=== PATIENT | male | born 1975 | race Caucasian/White ===

== ENCOUNTER 2018-05-06 23:06 | Inpatient (IN) | payer OTHER ==
--- NOTE | 2018-05-06 23:25 | Emergency Department Report ---
ED Chest Pain HPI - General Chief Complaint: Chest Pain Stated Complaint: CHEST PAIN Time Seen by Provider: 05/06/18 23:17 Source: patient, EMS Mode of arrival: Stretcher Limitations: Language Barrier - History of Present Illness Initial Comments: 42-year-old male with no previous medical history presents with complaint of chest pain since this morning. Onset of pain while at rest. Patient states pain is left-sided, radiates in the left arm, with associated shortness of breath. Patient denies diaphoresis, nausea or vomiting. Patient reports mild swelling to bilateral lower legs. Patient denies fever or cough. Patient reports ETOH use, however denies tobacco and drug use. MD Complaint: chest pain -: This morning Onset: during rest Pain Location: left chest Pain Radiation: LUE Severity: moderate Quality: tightness Consistency: constant Improves With: nothing Worsens With: nothing re: dyspnea. denies: nausea, vomting, diaphoresis Other Symptoms: leg swelling. denies: cough, fever - Related Data Home Medications Medication Instructions Recorded Confirmed Last Taken No Known Home Medications [No 05/07/18 05/07/18 Unknown Reported Home Medications] Allergies Allergy/AdvReac Type Severity Reaction Status Date / Time No Known Allergies Allergy Unverified 05/06/18 23:10 Heart Score - HEART Score History: Moderately suspicious EKG: Normal Age: < 45 Risk factors: No known risk factors Troponin: < normal limit HEART Score: 1 ED Review of Systems ROS: Stated complaint: CHEST PAIN Other details as noted in HPI Comment: All other systems reviewed and negative Constitutional: denies: chills, fever Respiratory: shortness of breath Cardiovascular: chest pain Gastrointestinal: denies: nausea, vomiting ED Past Medical Hx - Past Medical History Previous Medical History?: No - Surgical History Past Surgical History?: No - Social History Smoking Status: Never Smoker Substance Use Type: None - Medications Home Medications: Home Medications Medication Instructions Recorded Confirmed Last Taken Type No Known Home Medications [No 05/07/18 05/07/18 Unknown History Reported Home Medications] ED Physical Exam - General Limitations: Language Barrier General appearance: alert, in no apparent distress - Head Head exam: Present: atraumatic, normocephalic - Eye Eye exam: Present: normal appearance - ENT ENT exam: Present: mucous membranes moist - Respiratory Respiratory exam: Present: normal lung sounds bilaterally. Absent: respiratory distress - Cardiovascular Cardiovascular Exam: Present: regular rate, normal rhythm - GI/Abdominal GI/Abdominal exam: Present: soft. Absent: distended - Extremities Exam Extremities exam: Present: other (no significant edema noted). Absent: calf tenderness - Neurological Exam Neurological exam: Present: alert, oriented X3 - Psychiatric Psychiatric exam: Present: normal affect, normal mood - Skin Skin exam: Present: warm, dry, intact, normal color ED Course Vital Signs 05/06/18 05/06/18 05/07/18 23:28 23:30 00:00 Temperature 98.5 F 98.5 F Pulse Rate 72 74 77 Respiratory 14 14 24 Rate Blood Pressure 135/90 147/82 Blood Pressure 135/90 [Right] O2 Sat by Pulse 95 95 92 Oximetry 05/07/18 05/07/18 05/07/18 01:00 02:00 03:00 Temperature Pulse Rate 72 76 73 Respiratory 23 22 22 Rate Blood Pressure 155/77 152/82 155/77 Blood Pressure [Right] O2 Sat by Pulse 93 94 93 Oximetry 05/07/18 05/07/18 03:19 04:00 Temperature Pulse Rate 81 85 Respiratory 22 Rate Blood Pressure 144/89 144/78 Blood Pressure [Right] O2 Sat by Pulse 94 Oximetry ED Medical Decision Making - Lab Data Result diagrams: 05/06/18 23:26 05/06/18 23:26 - EKG Data -: EKG Interpreted by Me EKG shows normal: sinus rhythm, axis, intervals, QRS complexes, ST-T waves Rate: normal - EKG Data Interpretation: no acute changes - Radiology Data Radiology results: report reviewed, image reviewed - Medical Decision Making 42-year-old male with chest pain radiating into the left arm and shortness of breath. EKG, troponin normal. D-dimer slightly elevated so CT was obtained which was also normal. Due to character of pain and the fact that patient does not have any outpatient follow up, will admit for chest pain workup. Dr. Nix, hospitalist, to admit. - Differential Diagnosis ACS, PE, pulm edema, pneumonia Critical care attestation.: If time is entered above; I have spent that time in minutes in the direct care of this critically ill patient, excluding procedure time. ED Disposition Clinical Impression: Chest pain Disposition: OP ADMIT IP TO THIS HOSP Is pt being admited?: Yes Condition: Stable Time of Disposition: 02:32
--- NOTE | 2018-05-06 23:56 | XRay Report ---
FINAL REPORT EXAM: XR CHEST 1V AP HISTORY: chest pain TECHNIQUE: upright single view chest PRIORS: None. FINDINGS: Cardiac and mediastinal contours are unremarkable. No focal pulmonary infiltrate is identified. No pleural fluid collection seen. Pulmonary vasculature is unremarkable. IMPRESSION: Negative single-view chest
[2018-05-07 00:04] LABS: Basophils # (Auto) 0.1 K/mm3 (0.0-0.1); Basophils % (Auto) 0.8 % (0.0-1.8); Eosinophils # (Auto) 0.1 K/mm3 (0.0-0.4); Eosinophils % (Auto) 1.8 % (0.0-4.3); Hemoglobin 15.7 gm/dl (11.8-15.2); Lymphocytes # (Auto) 1.3 K/mm3 (1.2-5.4); Lymphocytes % (Auto) 19.6 % (13.4-35.0); Mean Corpuscular HGB Conc 35 % (32-34); Mean Corpuscular Volume 86 fl (84-94); Monocytes # (Auto) 0.6 K/mm3 (0.0-0.8); Platelet Count 138 K/mm3 (140-440); Red Cell Distribution Width 13.9 % (13.2-15.2)
[2018-05-07 00:13] LABS: INR 0.98 (0.87-1.13); Partial Thromboplastin Time 24.1 Sec. (24.2-36.6)
[2018-05-07 00:21] LABS: Alanine Aminotransferase 55 units/L (7-56); Albumin 4.1 g/dL (3.9-5); BUN/Creatinine Ratio 18; Blood Urea Nitrogen 9 mg/dL (9-20); Hemolysis Index 13
--- NOTE | 2018-05-07 02:09 | Cat Scan Report ---
FINAL REPORT PROCEDURE: CT ANGIOGRAPHY CHEST TECHNIQUE: Computerized axial tomographic angiography of the chest and pulmonary arteries was perfor med after the IV injection of iodinated nonionic contrast. The image data was postprocessed using max imum intensity projection (MIP) and 2-dimensional multiplanar reformatted (MPR) techniques. The exami nation is specifically tailored to the evaluation of the pulmonary arteries per clinical request. HISTORY: Short of breath 786.09, chest pain 786.50, SOB PAIN COMPARISON: No prior studies are available for comparison. FINDINGS: Heart and pericardium: Normal. Thoracic aorta: There is no thoracic aortic aneurysm or dissection. Pulmonary vasculature: Normal. No pulmonary emboli. Lymph nodes: No enlarged thoracic lymph nodes. Lungs: Lungs are expanded. There are no infiltrates, effusions or pneumothoraces.. Pleural space: No effusion, thickening, or pneumothorax. Musculoskeletal structures: No significant abnormality. Upper abdominal structures: Liver is fatty and enlarged.. IMPRESSION: There is no evidence of pulmonary embolism..
[2018-05-07] MEDS ORDERED: ASPIRIN PO ONE (02:29)
[2018-05-07] MEDS ORDERED: NITROSTAT SL PRN (02:31)
[2018-05-07] MEDS ORDERED: TYLENOL PO PRN (02:48)
[2018-05-07] MEDS ORDERED: SODIUM CHLORIDE FLUSH SYRINGE 10 ML IV PRN (02:48)
[2018-05-07] MEDS ORDERED: NORVASC PO ONE (02:48)
[2018-05-07] MEDS ORDERED: ZOFRAN IV PRN (02:48)
[2018-05-07] MEDS ORDERED: MORPHINE IV PRN (02:48)
--- NOTE | 2018-05-07 02:52 | History and Physical Report ---
History of Present Illness Date of examination: 05/07/18 History of present illness: 42-year-old man with a history of focal discussed emergency room with complaints of chest pain started this morning. Pain is in the epigastric area which she describes a tightness, constant, radiating to the left arm, intensity 5/10. Admits to nausea vomiting, shortness of breath, no diaphoresis or palpitation Review of systems Constitutional: no weight loss, chills, fever Ears, eyes, nose, mouth and throat: no nasal congestion, no nasal discharge, no sinus pressure, no vision change, no red eye. Neck: No neck pain or rigidity. Cardiovascular: no palpitations, +chest pain Respiratory: no cough,+ shortness of breath Gastrointestinal: no hematochezia, abdominal pain Genitourinary : no frequency , no hematuria Musculoskeletal: no joint swelling or muscle ache Integumentary: no rash, no pruritis Neurological: no parathesias, no focal weakness Endocrine: no cold or heat intolerance, no polyuria or polydipsia Hematologic/Lymphatic: no easy bruising, no easy bleeding, no gland swelling Allergic/Immunologic: no urticaria, no angioedema. PAST MEDICAL HISTORY: Face none PAST SURGICAL HISTORY: none SOCIAL HISTORY: + alcohol, no drugs, tobacco FAMILY HISTORY: Hypertension Medications and Allergies Allergies Allergy/AdvReac Type Severity Reaction Status Date / Time No Known Allergies Allergy Unverified 05/06/18 23:10 Home Medications Medication Instructions Recorded Confirmed Last Taken Type RX: No Known Home Medications [No 05/07/18 05/07/18 Unknown History Reported Home Medications] Active Meds: Active Medications Acetaminophen (Tylenol) 650 mg PO Q4H PRN PRN Reason: Pain MILD(1-3)/Fever >100.5/MILIAN Amlodipine Besylate (Norvasc) 5 mg PO ONCE ONE Stop: 05/07/18 02:49 Enoxaparin Sodium (Lovenox) 30 mg SUB-Q QDAY LUIS A Sodium Chloride (Nacl 0.45% 1000 Ml) 1,000 mls @ 75 mls/hr IV DIRECT LUIS A Nitroglycerin (Nitrostat) 0.4 mg SL .Q5MIN PRN PRN Reason: Chest Pain Exam - Physical Exam Narrative exam: General Apperance: The patient lying in bed, breathing comfortable HEENT: Normocephalic, atraumatic. Pupils equally round and reactive to light, EOMI, no sclericterus or JVD or thyromegaly or nodule. , no carotid bruit, muco us membranes moist, no exudate or erythema Heart: S1-S2, regular is rhythm Lungs: Clear to auscultation bilaterally, breathing comfortable Abdomen: Positive bowel sounds, soft, nontender, nondistended, no organomegaly Extremities: No edema cyanosis clubbing Skin: no rash, nodule, warm and dry Neuro: cranial nerves 2-12 intact, speech is fluent, motor/sensory intact - Constitutional Vitals: Temp Pulse Resp BP Pulse Ox 98.5 F 72 23 155/77 93 05/06/18 23:30 05/07/18 01:00 05/07/18 01:00 05/07/18 01:00 05/07/18 01:00 Results - Labs CBC & Chem 7: 05/07/18 05:48 05/07/18 05:48 Labs: Abnormal lab results 05/06/18 05/06/18 05/06/18 Range/Units 23:26 23:26 23:26 RBC 5.20 H (3.65-5.03) M/mm3 Hgb 15.7 H (11.8-15.2) gm/dl MCHC 35 H (32-34) % Plt Count 138 L (140-440) K/mm3 [place] % (Auto) 9.0 H (0.0-7.3) % APTT 24.1 L (24.2-36.6) Sec. D-Dimer 281.29 H (0-234) ng/mlDDU Creatinine 0.5 L (0.8-1.5) mg/dL Glucose 122 H (75-100) mg/dL Calcium 8.0 L (8.4-10.2) mg/dL AST 58 H (5-40) units/L - Imaging and Cardiology EKG: report reviewed Chest x-ray: report reviewed CT Scan - head: report reviewed Assessment and Plan History Hypertensive urgency Chest pain Plan Admit to medicine Check cardiac enzymes, stress test Start Norvasc, first dose now DVT prophylaxis, morphine, aspirin
[2018-05-07] MEDS ORDERED: NACL 0.45% 1000 ML 1,000 ML IV SCH (03:00)
[2018-05-07] MEDS ORDERED: ASPIRIN ONE (03:16)
[2018-05-07] MEDS ORDERED: NORVASC ONE (03:17)
[2018-05-07 03:56] LABS: Creatine Kinase MB 8.3 ng/mL (0.0-4.0)
[2018-05-07] MEDS ORDERED: NACL 0.9% 1000 ML 1,000 ML ONE (03:59)
[2018-05-07] MEDS ORDERED: NACL 0.9% 1000 ML 1,000 ML IV ONE (04:05)
[2018-05-07 06:05] LABS: Basophils # (Auto) 0.1 K/mm3 (0.0-0.1); Basophils % (Auto) 1.3 % (0.0-1.8); Eosinophils # (Auto) 0.1 K/mm3 (0.0-0.4); Eosinophils % (Auto) 1.3 % (0.0-4.3); Hematocrit 43.9 % (35.5-45.6); Hemoglobin 15.2 gm/dl (11.8-15.2); Lymphocytes # (Auto) 1.2 K/mm3 (1.2-5.4); Lymphocytes % (Auto) 19.2 % (13.4-35.0); Mean Corpuscular HGB Conc 35 % (32-34); Mean Corpuscular Volume 87 fl (84-94); Monocytes # (Auto) 0.5 K/mm3 (0.0-0.8); Monocytes % (Auto) 8.3 % (0.0-7.3); Platelet Count 130 K/mm3 (140-440); Red Blood Count 5.03 M/mm3 (3.65-5.03); Red Cell Distribution Width 14.1 % (13.2-15.2)
[2018-05-07 06:36] LABS: BUN/Creatinine Ratio 17; Blood Urea Nitrogen 10 mg/dL (9-20); Calcium 8.3 mg/dL (8.4-10.2); Hemolysis Index 7
[2018-05-07] MEDS ORDERED: LEXISCAN IV ONE ×2 (08:02→08:05)
[2018-05-07] MEDS ORDERED: LOVENOX SUB-Q SCH (10:00)
[2018-05-07] MEDS ORDERED: SODIUM CHLORIDE FLUSH SYRINGE 10 ML IV SCH (10:00)
[2018-05-07 11:51] VITALS: BP 151/74
[2018-05-07] MEDS ORDERED: AFLURIA QUAD 2018-2019 SYRINGE IM ONE (12:00)
--- NOTE | 2018-05-07 12:32 | Discharge Summary ---
Providers - Providers Date of Admission: 05/07/18 02:48 Date of discharge: 05/07/18 Attending physician: PRESTON MYERS Primary care physician: BHARGAVI ROBERSON Hospitalization Condition: Stable Pertinent studies: CT angiogram of the chest Procedures: Regular treadmill stress test Hospital course: Mary Bonilla is a 42-year-old male, admitted for left-sided chest pain DC was ruled out with serial cardiac isoenzymes. EKG normal Patient was scheduled by Dr. Fatoumata Nix for a regular treadmill stress test Discussed with Dr. David Montes His treadmill stress test was normal However patient is also deconditioned from his obesity and probably ? Lack of physical activity Patient has no known medical conditions and is not on any medication His risk factors for coronary artery disease are low except for his obesity Patient is medically stable for discharge He was recommended for follow-up with Dr. Yancey on Wednesday chest pain recurs Disposition: TO HOME OR SELFCARE Time spent for discharge: 36 min Core Measure Documentation - Palliative Care Palliative Care/ Comfort Measures: Not Applicable - Core Measures Any of the following diagnoses?: none Exam - Constitutional Vitals: Temp Pulse Resp BP Pulse Ox 97.8 F 82 20 151/74 96 05/07/18 11:48 05/07/18 11:49 05/07/18 11:49 05/07/18 11:49 05/07/18 11:49 General appearance: Present: no acute distress, well-nourished, obese - EENT Eyes: Present: PERRL, EOM intact ENT: hearing intact, clear oral mucosa - Neck Neck: Present: supple, normal ROM. Absent: masses or JVD - Respiratory Respiratory effort: normal Respiratory: bilateral: CTA - Cardiovascular Rhythm: regular Heart Sounds: Present: S1 & S2 - Extremities Extremities: No edema - Abdominal General gastrointestinal: Present: soft, non-tender. Absent: hepatomegaly, splenomegaly Male genitourinary: Present: deferred - Rectal Rectal Exam: deferred - Integumentary Integumentary: Present: clear - Musculoskeletal Musculoskeletal: strength equal bilaterally - Psychiatric Psychiatric: appropriate mood/affect - Neurologic Neurologic: no focal deficits Plan Activity: no restrictions, advance as tolerated Weight Bearing Status: Full Weight Bearing Diet: regular, low fat, low cholesterol Follow up with: BHARGAVI ROBERSON MD [Primary Care Provider] - 3-5 Days SOO YANCEY MD [Staff Physician] - 3 Days
== END 2018-05-07 15:00 | disposition home or self-care (01) | DRG 313 ==
LOC: ED 23:06 → 4A 05-07 02:48
PROVIDERS: ADMIT Internal Medicine; ATTEND Internal Medicine
DX: R07.89 Other chest pain (principal); Z68.41 Body mass index [BMI] 40.0-44.9, adult; I16.0 Hypertensive urgency; E66.9 Obesity, unspecified; Z72.89 Other problems related to lifestyle; Z82.49 Family history of ischemic heart disease and other diseases of the circulatory system
CPT/HCPCS: 36415; 71045; 71275; 80048; 80053; 82550; 82553; 84484; 85025; 85379; 85610; 85730; 90686; 93005; 93010; 93017; G0378; J1650; J2785; J7030; Q9967